=== PATIENT | female | born 1940 | race Caucasian/White ===

== ENCOUNTER 2019-01-18 15:00 | Emergency (ER) | payer MEDICARE, OTHER ==
[2019-01-18] MEDS ORDERED: BACITRACIN 0.9 GM UD PCKT TOP ONE (15:29)
[2019-01-18] MEDS ORDERED: TETANUS,DIPHTHERIA,PERTUSSIS 1 EA SYG IM ONE (15:29)
[2019-01-18] MEDS ORDERED: ACETAMINOPHEN 500 MG TAB PO ONE (15:29)
[2019-01-18] MEDS ORDERED: LIDOCAINE 1% 10 ML VIAL INJ ONE (15:30)
--- NOTE | 2019-01-18 15:47 | ED.PDOC ---
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 Denies head injury LOC foreign body and requests repair and understands no OMFS or plastic surgeon on staff and that repair will leave a scar. Denies fever chills nausea vomiting diarrhea chest pain admits baseline SOB denies diaphoresis. NO respiratory distress in department. No change in diet rest bowel or bladder has PMD for follow up just finished antibiotics for UTI. Denies smoking admits social drinking admits FH HTN DM no other c/o today. Reproductive Surgeon at bedside. Allergies/Adverse Reactions: Allergies NO KNOWN ALLERGY Allergy (Verified 01/18/19 15:12) Home Medications: Ambulatory Orders Acetaminophen [Tylenol] 650 mg PO Q6H PRN #30 tab 01/18/19 Clindamycin HCl 300 mg PO Q6H 10 Days #80 cap 01/18/19 Ibuprofen 600 mg PO Q6H PRN #20 tab 01/18/19 Review of Systems - Review of Systems Constitutional: States: no symptoms reported EENTM: States: no symptoms reported Respiratory: States: see HPI Cardiology: States: no symptoms reported Gastrointestinal/Abdominal: States: no symptoms reported Genitourinary: States: no symptoms reported Musculoskeletal: States: no symptoms reported Skin: States: other - laceration abrasion to top lip Neurological: States: no symptoms reported Endocrine: States: no symptoms reported Hematologic/Lymphatic: States: no symptoms reported All other Systems: Reviewed and Negative Past Medical History (General) - Patient Medical History Hx Stroke: No Hx Congestive Heart Failure: No Hx Hypertension: Yes Hx Diabetes: No Hx Gastroesophageal Reflux: Yes - Vaccination History Hx Tetanus, Diphtheria Vaccination: - 01/18/19 Hx Influenza Vaccination: No Hx Pneumococcal Vaccination: Yes - 2017 - Social History Hx Tobacco Use: No Hx Alcohol Use: Yes - Infrequent Family Medical History - Family History Mother Family History: No Known Living Status: Physical Exam - Physical Exam General Appearance: Comfortable Eye Exam: bilateral normal Ears, Nose, Throat: normal ENT inspection Neck: full range of motion, supple Respiratory: normal breath sounds, no respiratory distress Cardiovascular/Chest: systolic murmur Gastrointestinal/Abdominal: non tender, soft Back Exam: normal inspection Extremity: normal range of motion Neurologic: no motor/sensory deficits Skin Exam: other - vertical linear laceration about 0.5cm to right top lip crossing [place] Progress - Progress Progress: 01/18/19 15:50 A/P-Lip Laceration 1.lidocaine clean irrigate amoxicillin 2G initial dose and bacitracin after salvador ture repair then clindamycin tylenol ibuprofen on discharge 01/18/19 16:46 Repair went well tolerated procedure well hemodynamically stable will d/c as above Procedures - Laceration/Wound Repair Upper Face Wound Length (cm): 0.5 - top right lip Wound's Depth, Shape: superficial, linear, irregular Wound Explored: no foreign body removed Betadine Prep?: No Anesthesia: 1% Lidocaine Volume Anesthetic (cc's): 4 Wound Debrided: minimal Wound Repaired With: sutures Suture Size/Type: 5:0, prolene Number of Sutures: 8 Layer Closure?: No Sterile Dressing Applied?: Yes Departure - Departure Clinical Impression: Laceration of lip Qualifiers: Encounter type: initial encounter Qualified Code(s): S01.511A - Laceration without foreign body of lip, initial encounter Dog bite Qualifiers: Encounter type: initial encounter Qualified Code(s): W54.0XXA - Bitten by dog, initial encounter Time of Disposition: 16:49 Disposition: Discharge to Home or Self Care Condition: Good Departure Forms: ED Discharge - Pt. Copy, Patient Portal Self Enrollment Instructions: DI for Animal Bites, Laceration Repair Prescriptions: Acetaminophen [Tylenol] 650 mg PO Q6H PRN #30 tab PRN Reason: Pain Clindamycin HCl 300 mg PO Q6H 10 Days #80 cap Ibuprofen 600 mg PO Q6H PRN #20 tab PRN Reason: Pain Home Medications: Ambulatory Orders Acetaminophen [Tylenol] 650 mg PO Q6H PRN #30 tab 01/18/19 Clindamycin HCl 300 mg PO Q6H 10 Days #80 cap 01/18/19 Ibuprofen 600 mg PO Q6H PRN #20 tab 01/18/19
[2019-01-18] MEDS ORDERED: AMOXICILLIN 500 MG CAP PO ONE (15:58)
[2019-01-18] MEDS ORDERED: ONDANSETRON ODT 8 MG TAB SL ONE (15:59)
[2019-01-18] MEDS ORDERED: CLINDAMYCIN HCL CAP 150 MG CAP PO ONE (15:59)
[2019-01-18 16:52] VITALS: BP 151/83; TEMP 97; O2SAT 97
== END 2019-01-18 17:00 | disposition home or self-care (01) ==
LOC: ER 15:00
DX: S01.551A Open bite of lip, initial encounter (principal); K21.9 Gastro-esophageal reflux disease without esophagitis; I10 Essential (primary) hypertension; I34.1 Nonrheumatic mitral (valve) prolapse; W54.0XXA Bitten by dog, initial encounter; Y92.89 Other specified places as the place of occurrence of the external cause
CPT/HCPCS: 90471; 90715; J3490